=== PATIENT | male | born 1960 | race African-American/Black ===

== ENCOUNTER 2020-03-06 13:25 | Emergency (ER) | payer MEDICARE, MEDICAID ==
[~2020-03-06] VITALS: Ht 182.9 cm; Wt 150.0 kg
[2020-03-06] MEDS ORDERED: ASPIRIN 325MG EC TABLET PO ONE (14:00)
[2020-03-06 14:25] LABS: BASOPHILS % 0.7 % (0.0-2.0); EOSINOPHILS % 1.7 % (0.0-5.0); HEMATOCRIT. 44.8 % (42.0-52.0); HEMOGLOBIN. 14.4 g/dL (14.0-18.0); LYMPHOCYTES % 44.3 % (20.0-50.0); MEAN CORPUSCULAR HEMOGLOBIN 28.7 pg (28.0-32.0); MEAN CORPUSCULAR VOLUME 88.9 fL (80.0-94.0); MEAN PLATELET VOLUME 9.3 fl (7.4-10.4); MONOCYTES % 4.3 % (2.0-8.0); PLATELET 211 x1000/uL (130-400); RED BLOOD CELL COUNT 5.04 mill/uL (4.7-6.1); RED CELL DISTRIBUTION WIDTH 12.7 % (11.6-14.6)
[2020-03-06 14:33] LABS: CHLORIDE 108 mEq/L (98-107)
[2020-03-06] MEDS ORDERED: KETOROLAC 15MG/ML VIAL IV ONE (16:30)
[2020-03-06 16:37] VITALS: BP 124/61
== END 2020-03-06 16:40 | disposition home or self-care (01) ==
LOC: ER 13:25
DX: R07.89 Other chest pain (principal); E11.9 Type 2 diabetes mellitus without complications; E78.00 Pure hypercholesterolemia, unspecified
CPT/HCPCS: 36415; 71045; 80053; 83880; 84484; 85025; 93005; 96374; 99285; J1885